=== PATIENT | male | born 1960 | race Caucasian/White ===

== ENCOUNTER 2020-06-02 10:36 | Day surgery (SDC) | payer OTHER, BC ==
[2020-05-29 09:18] VITALS: BMI 28.5
--- NOTE | 2020-06-02 07:57 | HP ---
Satellite [facility] - Chief Complaint Chief Complaint: right knee pain - Past Medical History Allergies/Adverse Reactions: Allergies Allergy/AdvReac Type Severity Reaction Status Date / Time No Known Drug Allergies Allergy Verified 09/29/14 07:06 - Current Medications Current Medications: Home Medications Medication Instructions Recorded NK [No Known Home Medication] 05/29/20 Satellite Physical Exam - Physical Examination General Appearance: Well Nourished, Well Developed, Alert & Oriented x3 ENT: Clear Lung: Normal air movement Extremities: Other (right knee- + swelling, + ttp medially ,decr rom ,nvi, xrays show grade 4 medial compartment djd) Neurological: Intact, Alert, Oriented Satellite Impression/Plan - Impression/Plan Impression: right knee medial djd Operative Procedure: right medial danica ukr Date to be Performed: 06/02/20
[~2020-06-02 10:36] MED LIST: CELECOXIB 200 MG CAPSULE PO ONE
[2020-06-02] MEDS ORDERED: MIDAZOLAM HCL 2 MG/2 ML SINGLE DOSE VIAL ONE ×3 (11:31→12:44)
[2020-06-02] MEDS ORDERED: BUPIVACAINE HCL/PF 0.5% (5 MG/ML) 30 ML VIAL IJ ONE (11:32)
[2020-06-02] MEDS ORDERED: THROMBIN (RECOMBINANT) 5,000 UNIT VIAL TP ONE (11:55)
[2020-06-02] MEDS ORDERED: ceFAZolin SODIUM 1 GM VIAL ONE ×2 (11:55→12:38)
[2020-06-02] MEDS ORDERED: TRANEXAMIC ACID 1000 MG/10 ML VIAL IVPUSH ONE (12:30)
[2020-06-02] MEDS ORDERED: BUPIVICAINE 0.25%/MORPH PF/KETOROLAC - 51ML DISP.SYRINGE IA ONE ×2 (12:30→13:54)
[2020-06-02] MEDS ORDERED: CEFAZOLIN 2 GM in DEXTROSE 5%-WATER - 50 ML IVPB ONE (12:30)
[2020-06-02] MEDS ORDERED: DEXAMETHASONE SOD PHOSPHATE 4 MG/1 ML VIAL ONE ×2 (12:35→13:54)
[2020-06-02] MEDS ORDERED: ONDANSETRON 4 MG/2 ML VIAL ONE ×2 (12:35→13:54)
[2020-06-02] MEDS ORDERED: TRANEXAMIC ACID 1000 MG/10 ML VIAL ONE ×2 (12:38)
[2020-06-02] MEDS ORDERED: MAG HYDROX/AL HYDROX/SIMETH 30 ML UNIT-DOSE CUP PO PRN (12:54)
[2020-06-02] MEDS ORDERED: ONDANSETRON 4 MG/2 ML VIAL IVPUSH PRN (12:54)
[2020-06-02] MEDS ORDERED: LACTATED RINGERS SOLUTION 1,000 ML IV SCH (13:00)
[2020-06-02] MEDS ORDERED: PROPOFOL 20 ML ONE ×2 (13:46)
--- NOTE | 2020-06-02 14:30 | OP ---
Operative Note - Note: Operative Date: 06/02/20 (opal) Pre-Operative Diagnosis: right knee medial djd Operation: right medial danica ukr Post-Operative Diagnosis: Same as Pre-op Surgeon: Gume Rowell Boiler Coverer: Al Karimi Anesthesiologist/WAFER ABRADING MACHINE TENDER: Riky Odell Anesthesia: Spinal, Local Specimens Removed: bone fragments Estimated Blood Loss (mls): 100
[2020-06-02] MEDS ORDERED: traMADol HCL 50 MG TABLET PO PRN (14:45)
[2020-06-02] MEDS ORDERED: oxyCODONE HCL 5 MG TABLET PO PRN (14:45)
[2020-06-02] MEDS ORDERED: ACETAMINOPHEN 325 MG TABLET (FP) ONE ×2 (15:17→15:18)
[2020-06-02] MEDS: ACETAMINOPHEN 325 MG TABLET (FP) PO SCH ×2 (15:22→22:00)
[2020-06-02] MEDS ORDERED: oxyCODONE HCL 5 MG TABLET ONE (15:47)
--- NOTE | 2020-06-02 16:20 | SPEC ---
DATE OF OPERATION: 06/02/2020 PREOPERATIVE DIAGNOSIS: Degenerative joint disease, right knee. POSTOPERATIVE DIAGNOSIS: Degenerative joint disease, right knee. PROCEDURE: Right medial unicompartmental knee replacement with robotic-assisted navigation (MAKOplasty) and patelloplasty. SURGICAL ATTENDING: Gume Rowell MD MEDICAL SECRETARY: PAT Giron ANESTHESIA: Regional and spinal. CLOSURE: Medial JER components with a 6 femur, 7 tibia, and a 9 polyethylene; No. 1 Vicryl, fascia; 0 and 2-0, subcutaneous; 3-0 Monocryl subcuticular with skin glue; 4-0 undyed Vicryl for pin sites. ESTIMATED BLOOD LOSS: Negligible. COMPLICATIONS: None. CONDITION: To recovery in stable condition. DESCRIPTION OF OPERATIVE PROCEDURE: Patient was taken to the operating room on June 02, 2020. Spinal and regional anesthesia was administered by the anesthesiologist. IV Kefzol and TXA were administered prophylactically prior to the case. A well-padded pneumatic tourniquet was placed on the right proximal thigh. The right lower extremity was prepped and draped in the usual sterile fashion. A 6- to 8-cm longitudinal incision over the medial side of the patella from mid patella to the tibial tubercle was incised and was deepened using Bovie cautery. An arthrotomy was then made just medial to the patellar tendon and the patella. Subperiosteal dissection was done on the anteromedial proximal tibia all the way back to the MCL. Partial fat pad excision was performed, exposing the medial compartment. Checkpoint was malleable at both the femur and the tibia. Using 2 stab incisions in the femur 1 handbreadth above the patella on the femur and 2 stab incisions 1 handbreadth below the tibial tubercle on the tibia, 2 threaded pins were drilled in parallel fashion from anterior to posterior, going through the proximal cortex and engaging the 2nd but not through the 2nd cortex. To these threaded pins were fastened navigation rays, 1 on the femur and 1 on the tibia. The knee was then registered with the navigation device with the center of the rotation of the hip, medial and lateral malleoli, and multiple points both on the femur and on the tibia. Excellent registration of less than 0.5 mm was obtained on both to ensure adequate registration. The navigation device ensured us to "pop the bubbles" both on the femur and the tibia and that was performed and passed registration. The knee was then thoroughly inspected to remove all osteophytes both on the femur and the tibia. Also, osteophytes on the trochlea and on the surface of the patella were removed as well. The knee was then stressed with valgus stress at 0, 30, 60, 90, and 120 degrees of flexion. This propagated a looseness/tightness graft. The virtual positions of the components were then optimized to ensure an excellent graft. The tracking also was optimized by manipulating the virtual position to ensure that the femoral component articulated with the central portion of the tibial component. The robot was then brought into the field and was registered. The robot was used to bur the bone on both the femur and the tibia as to the specifications of the components. The trial components were then applied on both the femur and the tibia with an appropriate polyethylene insert. The knee was taken through a range of motion and found to have full extension, full flexion, with excellent stability. Stressing the graft revealed an excellent looseness/tightness graft with the trial components in place. The trial components were removed. The knee was thoroughly irrigated with a copious amount of antibiotic irrigation. The real components were then cemented in using modern generation cement techniques with antibiotic cement and pressurization. After the cement was hardened, the knee was thoroughly inspected to remove out all excess cement. The real polyethylene insert was then clipped into place. Range of motion and stability were again assessed to be as they were with the trials. At this time, the pins and the checkpoints were removed. The knee was again thoroughly irrigated. The arthrotomy was closed with No. 1 Vicryl, 0 and 2-0 subcutaneous, and 3-0 Monocryl subcuticular with skin glue for the skin, 4-0 undyed Vicryl for the pin sites. Sterile pressure dressing was placed over the knee. Patient awakened from anesthesia and transferred to recovery in stable condition. No complications. Estimated blood loss negligible. X-rays postoperatively revealed excellent position of the components. Marivel [id number]
[2020-06-02] MEDS: oxyCODONE HCL 5 MG TABLET PO PRN ×2 (18:07→23:53)
--- OUTSIDE RECORDS SUMMARY | 2020-06-02 18:51 | XMS ---
:1960 Author Organization [facility] Support Name Relationship Address Phone ARLET QUINTERO DAUGHTER [address] [place] [address] RE Unavailable Unavailable Unavailable MARITZA TERRY FRIEND [address] [place] [address] Re-disclosure Warning The records that you are about to access may contain information from federally- assisted alcohol or drug abuse programs. If such information is present, then the following federally mandated warning applies: This information has been disclosed to you from records protected by federal confidentiality rules (42 CFR part 2). The federal rules prohibit you from making any further disclosure of this information unless further disclosure is expressly permitted by the written consent of the person to whom it pertains or as otherwise permitted by 42 CFR part 2. A general authorization for the release of medical or other information is NOT sufficient for this purpose. The Federal rules restrict any use of the information to criminally investigate or prosecute any alcohol or drug abuse patient.The records that you are about to access may contain highly sensitive health information, the redisclosure of which is protected by Article 27-F of the [facility] Public Health law. If you continue you may haveaccess to information: Regarding HIV / AIDS; Provided by facilities licensed or operated by the [facility] Office of Mental Health; or Provided by the [facility] Office for People With Developmental Disabilities. If such information is present, then the following [facility] mandated warning applies: This information has been disclosed to you from confidential records which are protected by state law. State law prohibits you from making any further disclosure of this information without the specific written consent of the person to whom it pertains, or as otherwise permitted by law. Any unauthorized further disclosure in violation of state law may result in a fine or senior care sentence or both. A general authorization for the release of medical or other information is NOT sufficient authorization for further disclosure. Allergies and Adverse Reactions Type Description Substance Reaction Status Data Source(s ) Drug allergy No Known Allergies No Known Allergies [facility] Drug allergy busPIRone busPIRone [facility] Drug allergy traZODone traZODone [facility] Insurance Providers Payer name Policy type Policy ID Covered Covered alliance party's Policy P reece / Coverage alliance party ID relationship to [facility] type [place] MEDICARE [id number] SP [id number] BC PPO [id number] SP [id number] MEDICARE [id number] SP [id number] Results ID Date Data Source [id number] 05/29/2020 10:28:00 AM EDT [facility] Name Value Range Interpretation Description Data Sup porting Code Source(s) Document(s ) SARS [facility] coronavirus 2 RNA This lab was ordered by GREG coleman [facility] and reported by [facility]. ID Date Data Source [id number] 05/26/2020 09:30:00 AM EDT [facility] Name Value Range Interpretation Description Data Sup porting Code Source(s) Document(s ) SARS [facility] Coronavirus 2 RNA Presence Respiratory Specimen NIKOLE Probe Detection This lab was ordered by Elian and rep orted by [facility]. Procedure
[2020-06-02] MEDS: CEFAZOLIN 2 GM/D5W 2 GRAM/50 ML ML IVPB SCH (20:17)
[2020-06-02] MEDS: SENNOSIDES/DOCUSATE COMBO (SENNA PLUS) TABLET (UD) PO SCH (21:58)
[2020-06-03] MEDS: CEFAZOLIN 2 GM/D5W 2 GRAM/50 ML ML IVPB SCH (04:44)
[2020-06-03] MEDS: ACETAMINOPHEN 325 MG TABLET (FP) PO SCH ×3 (04:44→15:47)
[2020-06-03] MEDS: oxyCODONE HCL 5 MG TABLET PO PRN ×2 (05:53→09:48)
[2020-06-03] MEDS ORDERED: ASPIRIN 325 MG TABLET PO SCH (08:00)
--- NOTE | 2020-06-03 08:38 | PN ---
Progress Note (short form) - Note Progress Note: Ortho Pt seen and examined s/p right medial danica ukr pod #1 Selected Entries 06/03/20 06:00 Temperature 98.7 F Pulse Rate 54 L Respiratory 18 Rate Blood Pressure 118/62 dressing c/d/i, rom 0-60, calf soft, nt nvi a/p PT dvt ppx pain control d/c pending PT eval
[2020-06-03] MEDS: SENNOSIDES/DOCUSATE COMBO (SENNA PLUS) TABLET (UD) PO SCH (09:42)
[2020-06-03] MEDS ORDERED: PANTOPRAZOLE 40 MG TABLET PO SCH (10:00)
[2020-06-03] MEDS ORDERED: MULTIVITAMINS (DAILY MVI) TABLET (FP) PO SCH (10:00)
[2020-06-03 14:08] VITALS: BP 123/61; PULSE 54; TEMP 97.9
--- NOTE | 2020-06-03 14:45 | DS ---
Physical Examination Vital Signs: Vital Signs Temperature 97.9 F 06/03/20 14:00 Pulse Rate 54 L 06/03/20 14:00 Respiratory Rate 18 06/03/20 14:00 Blood Pressure 123/61 06/03/20 14:00 O2 Sat by Pulse Oximetry (%) 98 06/03/20 14:00 Discharge Summary Problems reviewed: Yes Reason For Visit: OSTEARTHRITIS Procedures: Principal: right medial danica ukr Hospital Course: admitted for elective right medial danica ukr, post-op per protocol, stable for d/c Condition: Good - Instructions Diet, Activity, Other Instructions: Post-op Instructions-Partial Knee Replacement Call the office for a follow-up appointment in 1 week - [phone] Aspirin 325mg daily for 6 weeks. Pain medication was sent into your pharmacy. Apply Graduated Compression Stockings (TEDs) to both lower extremities- remove daily for hygiene ONLY Apply Sequential Compression Device (SCDs) to both Lower extremities remove for PT and hygiene ONLY Apply cold packs to affected area for 15 minutes every 2 hours. Physical Therapist will come to your home for the first 5 days. You will be set up with outpatient PT at your first post-operative visit. Patient may ambulate as tolerated-encourage self care (at least every 2-3 hours while awake) with walker or cane Maintain Aquacel (waterproof) dressing to operative wound (will be removed by surgeon at first office visit) Shower with Aquacel dressing in place-if Aquacel integrity compromised, remove and apply dry sterile dressing and notify Orthopedist. DO NOT SHOWER unless Orthopedists approves without Aquacel dressing CONTACT THE OFFICE FOR ANY CHANGE IN YOUR CONDITION (for example-fever greater than 102 degrees, excessive bleeding from operative site, purulent drainage, severe swelling or pain) GO TO THE EMERGENCY ROOM IF THERE IS A MEDICAL EMERGENCY Knee Precautions: * Keep a rolled towel under affected heel while in bed or chair (to keep knee in extension) * Keep affected leg elevated except during mealtimes * DO NOT PLACE PILLOW UNDER AFFECTED KNEE * If you have any questions, please do not hesitate to call the office - [phone]. Referrals: Gume Rowell MD [Staff Physician] - Disposition: VNS/HOME HEALTH CARE - Home Medications Comprehensive Discharge Medication List: Ambulatory Orders Aspirin [ASA -] 325 mg PO DAILY@0800 tablet 09/15/20 Oxycodone HCl/Acetaminophen [Percocet 5-325 mg Tablet] 1 - 2 tab PO Q6H #30 tab MDD 6 06/02/20
== END 2020-06-03 15:30 | disposition home health service (06) ==
LOC: FM/S 10:36 → FASUSAT 10:36 → FASU 10:36 → FASUSAT 06-03 15:30
PROVIDERS: ATTEND Orthopaedic Surgery
PROC: 8E0YXBZ Computer Assisted Procedure of Lower Extremity (ICD-10-PCS; 2020-06-02)
PROC: 8E0Y0CZ Robotic Assisted Procedure of Lower Extremity, Open Approach (ICD-10-PCS; 2020-06-02)
PROC: 0SRC0L9 Replacement of Right Knee Joint with Medial Unicondylar Synthetic Substitute, Cemented, Open Approach (ICD-10-PCS; principal; 2020-06-02 13:07)
DX: M17.11 Unilateral primary osteoarthritis, right knee (principal)
CPT/HCPCS: 20985; 27446; C1776; S2900; 73560-TC-RT-FY; 94760; 97010-GP; 97116-GP; 97162-GP

== ENCOUNTER 2023-12-25 07:56 | Day surgery (SDC) | payer OTHER ==
[2023-12-18 13:04] VITALS: BMI 31.1
[2023-12-25] MEDS ORDERED: ROCURONIUM BROMIDE 50 MG/5 ML SYRINGE ONE (10:17)
[2023-12-25] MEDS ORDERED: MIDAZOLAM HCL 2 MG/2 ML SINGLE DOSE VIAL ONE (10:17)
[2023-12-25] MEDS ORDERED: SUCCINYLCHOLINE CHLORIDE 200 MG/10 ML SYRINGE ONE (10:17)
[2023-12-25] MEDS ORDERED: PROPOFOL 40 ML ONE (10:17)
[2023-12-25] MEDS ORDERED: ACETAMINOPHEN INJECTION 100 ML IVPB ONE (10:21)
[2023-12-25] MEDS ORDERED: ROPIVACAINE HCL 0.5% 30ML VIAL ONE (10:21)
[2023-12-25] MEDS ORDERED: TRANEXAMIC ACID 1000 MG/10 ML VIAL ONE (10:58)
[2023-12-25] MEDS ORDERED: VANCOMYCIN 1,000 MG VIAL (RESTRICTED TO ID ONLY) ONE (10:58)
[2023-12-25] MEDS: VANCOMYCIN 1,000 MG VIAL (RESTRICTED TO ID ONLY) IVPB ONE (13:55)
[2023-12-25] MEDS ORDERED: NEOSTIGMINE METHYLSULFATE 0.5 MG/1 ML - 10 ML MDV ONE (14:05)
[2023-12-25] MEDS ORDERED: ONDANSETRON 4 MG/2 ML VIAL IVPUSH PRN (14:44)
[2023-12-25] MEDS ORDERED: MAG HYDROX/AL HYDROX/SIMETH 30 ML UNIT-DOSE CUP PO PRN (14:45)
[2023-12-25] MEDS ORDERED: MAGNESIUM HYDROX 2400MG/30ML ORAL SUSPENSION 30 ML CUP PO PRN (14:45)
[2023-12-25] MEDS: oxyCODONE HCL 5 MG TABLET PO PRN (14:51)
[2023-12-25] MEDS ORDERED: FENTANYL CITRATE/PF 50 MCG/ML VIAL ONE (15:12)
[2023-12-25] MEDS: HYDROmorphone HCL/PF 1 MG/ML VIAL ONE (15:24)
[2023-12-25] MEDS: LACTATED RINGERS SOLUTION 1,000 ML IV SCH ×2 (17:09→17:10)
[2023-12-25] MEDS: CEFAZOLIN SODIUM 2 GM in DEXTROSE 5%-WATER 100 ML IVPB ONE (17:09)
[2023-12-25] MEDS: KETOROLAC TROMETHAMINE 30 MG/1 ML VIAL IVPUSH ONE (17:26)
[2023-12-25] MEDS: CEFAZOLIN SODIUM 2 GM in DEXTROSE 5%-WATER 100 ML IVPB SCH (20:57)
[2023-12-25] MEDS: HYDROmorphone HCl 2 MG/ML VIAL IVPUSH PRN (21:42)
[2023-12-25] MEDS: SENNOSIDES/DOCUSATE COMBO (SENNA PLUS) TABLET (UD) PO SCH (21:45)
[2023-12-25] MEDS: GABAPENTIN 300 MG CAPSULE PO SCH (21:45)
[2023-12-25] MEDS ORDERED: VANCOMYCIN 1,000 MG in DEXTROSE 5%-WATER - 250 ML IVPB ONE (22:00)
[2023-12-25] MEDS: VANCOMYCIN/WATER FOR INJ (PEG) 1,000 MG/200 ML BAG IVPB ONE (23:12)
[2023-12-26] MEDS: ONDANSETRON 4 MG/2 ML VIAL IVPUSH PRN (06:41)
[2023-12-26 08:02] LABS: HEMATOCRIT 38.4 % (35.4-49); HEMOGLOBIN 12.7 G/dL (11.7-16.9); MCH 29.2 pg (25.7-33.7); MEAN CELL VOLUME 88.4 fl (80-96); MEAN PLT VOLUME 8.2 fl (7.5-11.1); RBC 4.34 10^6/uL (4.00-5.60); RDW 14.8 % (11.9-15.9); WHITE BLOOD COUNT 10.7 10^3/uL (4.0-10.8)
[2023-12-26 08:52] LABS: ALBUMIN 3.7 g/dl (3.4-5.0); CALCIUM 8.3 mg/dl (8.5-10.1); CREATININE 0.8 mg/dl (0.6-1.3); PHOSPHOROUS 2.9 (2.5-4.9); TOT PROT 6.1 g/dl (6.4-8.2)
[2023-12-26] MEDS: ASPIRIN 81 MG CHEWABLE TABLETS PO SCH (09:15)
[2023-12-26] MEDS: MULTIVITAMINS (DAILY MVI) TABLET (FP) PO SCH (09:15)
[2023-12-26] MEDS: PANTOPRAZOLE 40 MG TABLET PO SCH (09:15)
[2023-12-26] MEDS ORDERED: CLOMIPHENE CITRATE 50 MG PO SCH (10:00)
[2023-12-26 10:43] VITALS: RESP 18
[2023-12-27] MEDS: ACETAMINOPHEN 325 MG TABLET (FP) PO SCH (09:08)
[2023-12-27 09:32] VITALS: BP 155/80; PULSE 92; TEMP 99.7
== END 2023-12-27 13:26 | disposition home or self-care (01) ==
LOC: SUATTDRO 07:56 → FASUSAT 07:56 → FM/S 16:14 → FASUSAT 12-27 13:26
PROC: 0LS40ZZ Reposition Left Upper Arm Tendon, Open Approach (ICD-10-PCS; 2023-12-25)
PROC: 0QP104Z Removal of Internal Fixation Device from Sacrum, Open Approach (ICD-10-PCS; 2023-12-25)
PROC: 0RUK0JZ Supplement Left Shoulder Joint with Synthetic Substitute, Open Approach (ICD-10-PCS; principal; 2023-12-25 11:50)
DX: M19.012 Primary osteoarthritis, left shoulder (principal); M75.102 Unspecified rotator cuff tear or rupture of left shoulder, not specified as traumatic; M75.22 Bicipital tendinitis, left shoulder; T81.32XA Disruption of internal operation (surgical) wound, not elsewhere classified, initial encounter; Z47.2 Encounter for removal of internal fixation device; Y83.8 Other surgical procedures as the cause of abnormal reaction of the patient, or of later complication, without mention of misadventure at the time of the procedure; Y92.9 Unspecified place or not applicable
CPT/HCPCS: 20680; 23430; 23472; C1713; 36415; 73030-TC-LT-FY; 80053; 83735; 84100; 85027; 88300-TC; 88304-TC; 88311-TC; 94760; 97116-GP; 97162-GP; C1757; C1776; C1889; J0131